=== PATIENT | female | born 1965 | race Caucasian/White ===

== ENCOUNTER 2023-09-02 14:33 | Emergency (ER) | payer BC ==
[~2023-09-02] VITALS: Ht 160 cm; Wt 113.4 kg
[2023-09-02 14:49] VITALS: BP_SYST 154; RESP 20; TEMP 97.5; O2SAT 98
[2023-09-02] MEDS ORDERED: FLUT1DIS5 IH (15:14)
[2023-09-02] MEDS ORDERED: BISA-140 RC (15:14)
[2023-09-02] MEDS ORDERED: FOLI-43 PO (15:14)
[2023-09-02] MEDS ORDERED: ERTA1VIA3 IV (15:14)
[2023-09-02] MEDS ORDERED: BUME2TAB7 PO (15:14)
[2023-09-02] MEDS ORDERED: ALBU10.7 PO (15:14)
[2023-09-02] MEDS ORDERED: VITD2000 PO (15:14)
[2023-09-02] MEDS ORDERED: CYCL10TA24 PO (15:14)
[2023-09-02] MEDS ORDERED: GLUC1KIT IJ (15:14)
[2023-09-02] MEDS ORDERED: APIX5TAB PO (15:14)
[2023-09-02] MEDS ORDERED: ZOLP5TAB2 PO (15:14)
[2023-09-02] MEDS ORDERED: FERR236T3 PO (15:14)
[2023-09-02] MEDS ORDERED: DIPH25CA83 PO (15:14)
[2023-09-02] MEDS ORDERED: ESCI20TA PO (15:14)
[2023-09-02] MEDS ORDERED: INSU100V SQ (15:15)
[2023-09-02] MEDS ORDERED: SENN8.6T19 PO (15:45)
[2023-09-02] MEDS ORDERED: ACET-2634 PO (15:45)
[2023-09-02] MEDS ORDERED: POTA-360 PO (15:45)
[2023-09-02] MEDS ORDERED: TRAZ-251 PO (15:45)
[2023-09-02] MEDS ORDERED: IBUP-1507 PO (15:45)
[2023-09-02] MEDS ORDERED: ONDA4TAB11 PO (15:45)
[2023-09-02] MEDS ORDERED: INSU100V53 SUBCUT (15:45)
[2023-09-02] MEDS ORDERED: LORA1TAB PO (15:45)
[2023-09-02] MEDS ORDERED: INSU100V44 SUBCUT (15:45)
[2023-09-02] MEDS ORDERED: TRAM50TA2 PO (15:45)
[2023-09-02] MEDS ORDERED: MIDO5TAB4 PO (15:45)
[2023-09-02] MEDS ORDERED: PANT40TA45 PO (15:45)
[2023-09-02] MEDS ORDERED: HYDR-3927 PO (15:45)
[2023-09-02] MEDS ORDERED: PRED10TA PO (15:45)
[2023-09-02] MEDS ORDERED: OXYC-117 PO (15:45)
[2023-09-02] MEDS ORDERED: PRIM50TA5 PO (15:45)
[2023-09-02] MEDS ORDERED: MOM PO (15:45)
[2023-09-02] MEDS ORDERED: BRE5 PO (15:45)
[2023-09-02] MEDS ORDERED: METF-379 PO (15:45)
[2023-09-02] MEDS ORDERED: ASCO500T20 PO (15:45)
[2023-09-02 15:50] LABS: BASOPHILS # (AUTO) 0.1 K/uL (0.0-0.2); BASOPHILS % (AUTO) 1.2 % (0.0-2.0); EOSINOPHILS # (AUTO) 0.1 K/uL (0.0-0.4); EOSINOPHILS % (AUTO) 1.1 % (0.0-4.0); HEMATOCRIT 27.8 % (36-48); HEMOGLOBIN 8.7 g/dL (12.0-16.0); LYMPHOCYTES # (AUTO) 0.5 K/uL (1.0-5.5); LYMPHOCYTES % (AUTO) 6.3 % (20.5-51.5); MEAN CORPUSCULAR HEMOGLOBIN 27 pg (27-31); MEAN CORPUSCULAR HGB CONC 31 % (32-36); MEAN CORPUSCULAR VOLUME 85 fL (79.0-98.0); MONOCYTES # (AUTO) 0.3 K/uL (0.0-1.0); MONOCYTES % (AUTO) 4.2 % (1.7-9.3); NEUTROPHILS # (AUTO) 7.3 K/uL (1.8-7.7); NEUTROPHILS % (AUTO) 87.2 % (40.0-70.0); PLATELET COUNT (AUTO) 379 K/uL (130-430); RED BLOOD CELL COUNT(AUTO) 3.26 MIL/uL (4.2-6.2); RED CELL DISTRIBUTION WIDTH 19.9 % (9.0-15.0); WHITE BLOOD COUNT (AUTO) 8.3 K/uL (4.8-10.8)
[2023-09-02 16:17] LABS: CALCIUM 8.9 mg/dL (8.4-11.0); CREATININE 0.85 mg/dL (0.55-1.30); POTASSIUM 5.2 mmol/L (3.5-5.1)
[2023-09-02 22:25] VITALS: BP_SYST 140; PULSE 85; RESP 20; TEMP 97.3; O2SAT 100
== END 2023-09-02 22:25 | disposition home or self-care (01) ==
LOC: SED 14:33
DX: Z45.2 Encounter for adjustment and management of vascular access device (principal); Z88.1 Allergy status to other antibiotic agents; Z79.4 Long term (current) use of insulin; Z79.899 Other long term (current) drug therapy
CPT/HCPCS: 36415; 80048; 83605; 85025; 85610; 85730; 99285